=== PATIENT | female | born 2000 | race Two or more races ===

== ENCOUNTER 2023-03-09 10:29 | Outpatient (CLI) | payer OTHER | END 2023-03-09 10:31 | disposition home or self-care (01) | LOC: PRENATAL 10:29 | PROVIDERS: ATTEND Obstetrics & Gynecology Maternal & Fetal Medicine | DX: O35.3XX0 Maternal care for (suspected) damage to fetus from viral disease in mother, not applicable or unspecified (principal); O44.00 Complete placenta previa NOS or without hemorrhage, unspecified trimester; Z3A.20 20 weeks gestation of pregnancy ==

== ENCOUNTER 2023-05-05 15:06 | Outpatient (CLI) | payer OTHER | END 2023-05-05 15:07 | disposition home or self-care (01) | LOC: PRENATAL 15:06 | PROVIDERS: ATTEND Obstetrics & Gynecology Maternal & Fetal Medicine | DX: O26.849 Uterine size-date discrepancy, unspecified trimester (principal); O44.00 Complete placenta previa NOS or without hemorrhage, unspecified trimester; O26.879 Cervical shortening, unspecified trimester; Z3A.28 28 weeks gestation of pregnancy ==

== ENCOUNTER 2024-10-11 08:13 | Outpatient (CLI) | payer OTHER ==
[~2024-10-11 08:13] MED LIST: AMPICILLIN TRI500 MG PO; PRENATAL TABLE1 EAC1 PO
== END 2024-10-11 08:18 | disposition home or self-care (01) ==
LOC: PRENATAL 08:13
PROVIDERS: ATTEND Obstetrics & Gynecology Maternal & Fetal Medicine
DX: O26.849 Uterine size-date discrepancy, unspecified trimester (principal); Z14.8 Genetic carrier of other disease; Z3A.17 17 weeks gestation of pregnancy

== ENCOUNTER 2024-11-07 07:58 | Outpatient (CLI) | payer OTHER | END 2024-11-07 07:59 | disposition home or self-care (01) | LOC: PRENATAL 07:58 | PROVIDERS: ATTEND Obstetrics & Gynecology Maternal & Fetal Medicine | DX: O44.00 Complete placenta previa NOS or without hemorrhage, unspecified trimester (principal); Z3A.20 20 weeks gestation of pregnancy ==

== ENCOUNTER 2025-01-30 09:18 | Outpatient (CLI) | payer OTHER | END 2025-01-30 09:19 | disposition home or self-care (01) | LOC: PRENATAL 09:18 | PROVIDERS: ATTEND Obstetrics & Gynecology Maternal & Fetal Medicine | DX: O26.843 Uterine size-date discrepancy, third trimester (principal); O36.8130 Decreased fetal movements, third trimester, not applicable or unspecified; O99.013 Anemia complicating pregnancy, third trimester; Z3A.31 31 weeks gestation of pregnancy ==